=== PATIENT | male | born 1995 | race Caucasian/White ===

== ENCOUNTER 2021-10-19 23:43 | Emergency (ER) | payer MEDICAID, SELFPAY ==
[2021-10-20 01:14] VITALS: BP 132/70; PULSE 83; RESP 18; TEMP 35.9; O2SAT 98; BMI 40.3
== END 2021-10-20 03:57 | disposition left against medical advice (07) ==
LOC: HO.ED 10-20 03:57
PROVIDERS: Emergency Provider Emergency Medicine; PCP Internal Medicine
DX: F11.951 Opioid use, unspecified with opioid-induced psychotic disorder with hallucinations (principal)
CPT/HCPCS: 99281

== ENCOUNTER 2021-11-11 03:29 | Emergency (ER) | payer MEDICAID, SELFPAY ==
[2021-11-11 04:10] VITALS: BP 153/100; PULSE 97; RESP 16; TEMP 37.1; O2SAT 96; BMI 40.3
--- NOTE | 2021-11-11 04:19 | PC.NURSE ---
Will have Tech repeat blood pressure.
[2021-11-11 04:20] VITALS: BP 143/89; O2SAT 97
[2021-11-11 04:51] VITALS: PULSE 83; RESP 21; O2SAT 95
--- NOTE | 2021-11-11 05:24 | ED_ITS ---
HPI - General Adult General Chief complaint: General Medical Stated complaint: took , head feels swollen? Time Seen by Provider: 11/11/21 03:44 Source: patient Limitations: no limitations History of Present Illness HPI narrative: This is a 26-year-old male who about an hour and a half ago had taken a ?Percocet 30? which she had bought on the street. The patient has taking these occasionally. The patient said it was a single tablet. The patient soon after taking the tablet began to feel like his head was swollen/inflated/heavy. Patient became concerned that he might overdose and came to the emergency department. He initially had nausea but states that it feels better now. He denies any chest pain or shortness of breath abdominal pain. Related Data Allergies Allergy/AdvReac Type Severity Reaction Status Date / Time No Known Allergies Allergy Verified 10/20/21 01:16 Review of Systems Review of Systems: Yes all other systems are reviewed and are negative Constitutional: Constitutional: Reports as per HPI and Denies fever(s) Eyes: Eyes: Reports as per HPI and Reports no additional eye complaints ENT: Reports system reviewed and no additional complaints, except as documented, Reports as per HPI, Reports dizziness, Denies nasal congestion, Denies nasal discharge and Denies sore throat Cardiovascular: Cardiovascular: Reports as per HPI, Denies chest pain and Denies dyspnea Respiratory: Respiratory: Reports as per HPI, Denies cough and Denies dyspnea Gastrointestinal: Gastrointestinal: Reports as per HPI, Denies abdominal pain, Denies diarrhea, Reports nausea and Reports vomiting (Vomited once) Musculoskeletal: Musculoskeletal: Reports no additional musculoskeletal complaints Integumentary/Breasts: Skin/Breast: Reports as per HPI and Denies rash Neurologic: Reports as per HPI and Reports dizziness Comments: Feeling of head heaviness Psychiatric: Psychiatric: Reports no additional psychiatric complaints and Reports as per HPI Endocrine: Endocrine: Reports no additional endocrine complaints and Reports as per HPI Hematologic/Lymphatic: Hematologic/Lymphatic: Reports no additional hematologic/lymphatic complaints, Reports as per HPI and Reports other (No peripheral edema) [facility] Social History Social History Advance Directives: No Physical Exam ED Vital Signs: Vital Signs - 24 hr 11/11/21 04:10 11/11/21 04:20 11/11/21 04:51 Temperature 98.7 F Pulse Rate 97 83 Respiratory Rate 16 21 H Blood Pressure 153/100 H 143/89 H Pulse Oximetry 96 97 95 Oxygen Delivery Method Room Air Room Air Room Air BMI result Body Mass Index 40.3 Const Other: Patient alert, pupils about 4 mm, respirations normal, normally conversant. No evidence of concerning toxicity/overdose General: no acute distress Orientation/consciousness: patient oriented x3 HENMT Head: Yes normal to inspection General nose exam: Normal external nose present Mouth: moist mucous membranes Throat: Yes posterior oropharynx normal, Yes tonsils normal and Yes uvula midline Eyes Eyelids: Yes eyelids normal Conjunctivae: conjunctivae normal Pupils: Equal, round and reactive pupils present Neck Neck: Yes supple Resp Effort & Inspection: normal respiratory effort Auscultation: clear to auscultation bilaterally Cardio Rate: regular rate Rhythm: regular rhythm Heart sounds: S1 normal heart sound present, S2 normal heart sound present, no gallops, no murmurs and no rubs GI Inspection: No distended Palpation (GI): Soft to palpation and nontender Auscultation: normal bowel sounds Skin General skin exam: other (Warm and dry) Neuro General: patient oriented x3 and CN's II-XI intact bilaterally Cranial nerves: Yes Equal, round and reactive pupils present Extrem General: Yes no pedal edema Psych Affect: normal affect Attitude: cooperative Discharge Plan Discharge Clinical Impression: Opiate misuse Patient Disposition: Home, Self-Care Instructions: Narcotic Use Disorder (ED) Additional Instructions: To not take drugs but on the street, as the content are unpredictable, and that can cause overdose and , or may have toxins which could have long-term e ffects.
== END 2021-11-11 05:51 | disposition home or self-care (01) ==
PROVIDERS: Emergency Provider Emergency Medicine
DX: T40.2X1A Poisoning by other opioids, accidental (unintentional), initial encounter (principal); Y92.9 Unspecified place or not applicable
CPT/HCPCS: 99284

== ENCOUNTER 2022-03-08 18:50 | Emergency (ER) | payer MEDICAID, SELFPAY ==
[2022-03-08 19:04] VITALS: BP 140/89; PULSE 114; RESP 18; TEMP 36.6; O2SAT 96; BMI 40.3
--- NOTE | 2022-03-08 19:35 | ED.WOUNDLAC ---
HPI - Wound/Laceration General Chief Complaint: Wound/Laceration Stated Complaint: left thumb laceration Time Seen by Provider: 03/08/22 19:22 Source: patient Mode of arrival: ambulatory Limitations: no limitations History of Present Illness HPI narrative: This is a 27-year-old male no significant medical history presenting to the emergency department a superficial laceration to left distal aspect of thumb. Patient right-hand dominant tells me he was cutting potatoes and cut the tip of his finger. Patient denies numbness tingling. Denies issues with moving finger. Tells me he was just worried about the cut. Not up-to-date on tetanus shot. Related Data Allergies Allergy/AdvReac Type Severity Reaction Status Date / Time No Known Allergies Allergy Verified 03/08/22 19:04 Review of Systems Review of Systems: Constitutional : No Fever, No Chills, Cardiovascular : No Chest Pain, No SOB Respiratory : No Dyspnea Gastrointestinal : No abdominal pain Musculoskeletal : No Joint Swelling Skin : No rash, positive skin laceration Neuro : No Weakness, No Numbness Psych : No SI/HI Yes all other systems are reviewed and are negative [facility]LY [facility], [facility] Past Medical History Attestation statement: The following information was validated with the patient. Source: old records reviewed and nursing notes reviewed Social History Social History Advance Directives: No Advance Directives Information Provided: No Physical Exam Vital Signs: Vital Signs: Last Vital Signs Temp 97.8 F 03/08/22 19:04 Pulse 114 H 03/08/22 19:04 Resp 18 03/08/22 19:04 BP 140/89 H 03/08/22 19:04 Pulse Ox 96 03/08/22 19:04 O2 Del Method 03/08/22 19:04 BMI result Body Mass Index 40.3 Vital signs stable slightly tachycardic likely secondary to pain Appearance: Alert.? Oriented X3.? No acute distress.? Head: Normocephalic, atraumatic, no step-offs or deformities Eyes: Pupils equal, round and reactive to light.? ENT: Pharynx normal.? Neck: Normal inspection.? Neck supple.? CVS: Normal heart rate and rhythm.? Pulses normal.? Respiratory: No respiratory distress.? Breath sounds normal.? Abdomen: Soft and nontender.? Skin: Skin warm and dry.? Normal skin color.? Normal skin turgor.?+1 cm laceration to thumb, superficial and located at the distal aspect of left thumb. 2+ radial pulses equal bilateral. No wrist drop. Full range of motion to all fingers. Capillary refill less than 2 seconds. Extremities: No lower extremity edema.? No calf ttp. 5/5 strength to bilateral upper and lower extremities Neuro: Oriented X 3.? No motor deficit.? No sensory deficit. CN 2-12 intact Course Reevaluation(s) Reevaluation #1: Dermabond was successfully applied to the area. Advised patient to keep on for week. Advised to return with new or worsening symptoms. Educated on worrisome signs and symptoms. No indication for p.o. antibiotics. Time: 19:58 Medical Decision Making Medical Decision Making [facility] Narrative: 1934 27-year-old male presents to the emergency department with laceration to thumb status post cutting himself with a knife. Unsure of tetanus status. Denies numbness and tingling Physical exam with 1 cm laceration to thumb, superficial and located at the distal aspect of left thumb. Neurovascularly intact Likely simple laceration. I do not suspect ligament or tendon injury. Unlikely fracture, dislocation. Plan at this time to administer Boostrix shot. Will repair laceration with Dermabond no need for sutures. Critical Care Time Critical Care Time Critical Care Time: No Discharge Plan Discharge Clinical Impression: Laceration Patient Disposition: Home, Self-Care Instructions: Laceration (ED) Additional Instructions: Take your medications as prescribed. If you were prescribed antibiotics today, it is important that you take your medication to their entirety, do not skip any doses, do not finish them early. Follow-up with your primary care provider this week. Return to the emergency department with new or worsening symptoms. Such as fevers, chills, chest pain, shortness of breath, nausea, vomiting, dizziness, headache, vision changes, lethargy In case of emergency call 911 Keep glue on until it falls off. Do not pick at it. Referrals: [facility] [Primary Care Provider] - 2 days
[2022-03-08] MEDS: Diphth,Pertus(ACell),Tet Adult 0.5 ML SYRINGE IM (19:59)
== END 2022-03-08 20:17 | disposition home or self-care (01) ==
PROVIDERS: Emergency Provider Internal Medicine
DX: S61.011A Laceration without foreign body of right thumb without damage to nail, initial encounter (principal); S60.312A Abrasion of left thumb, initial encounter; W26.9XXA Contact with unspecified sharp object(s), initial encounter; Y93.9 Activity, unspecified; Y92.9 Unspecified place or not applicable; Y99.9 Unspecified external cause status
CPT/HCPCS: 90471; 90715; 99282; 99284